=== PATIENT | male | born 1975 | race Caucasian/White ===

== ENCOUNTER 2016-12-21 22:15 | Emergency (ER) | payer MEDICAID ==
[~2016-12-21] VITALS: Ht 177.8 cm; Wt 95.3 kg
[~2016-12-21 22:15] MED LIST: ATEN-60 PO; LORA-655; OMEP20CA5 PO; TRIA25CA PO
[2016-12-21] MEDS ORDERED: SODIUM CHLORIDE 0.9% 1,000 ML IV ONE (22:24)
[2016-12-21 22:44] LABS: Basophils # (auto) 0 uL; Basophils % (auto) 0.4 % (0.0-2.0); Eosinophils # (auto) 0 uL; Eosinophils % (auto) 0.2 % (0.0-7.0); Hematocrit 39.6 % (41.0-53.0); Hemoglobin 13.7 g/dL (13.5-17.5); Lymphocytes # (auto) 0.6 uL; Lymphocytes % (auto) 13.3 % (10.0-50.0); Mean Corpuscular Hemoglobin 34.2 pg (28.0-32.0); Mean Corpuscular Hgb Conc. 34.6 g/dL (32.0-36.0); Mean Corpuscular Volume 98.9 fL (80.0-100.0); Mean Platelet Volume 7.4 fL (7.4-10.4); Monocytes # (auto) 0.4 uL; Neutrophils # (auto) 3.7 uL; Neutrophils % (auto) 78.1 % (37.0-80.0); Platelet Count (auto) 117 10^3/uL (140-450); Red Cell Distribution Width 16.9 % (11.6-16.0); White Blood Cell 4.7 10^3/uL (4.4-10.8)
[2016-12-21 23:05] LABS: Albumin 3.2 g/dL (3.4-5.0); BUN/Creatinine Ratio 7.3; Calcium 7.4 mg/dL (8.5-10.1); Magnesium 1.7 mg/dL (1.6-2.6)
[2016-12-21 23:10] LABS: Bilirubin, Total 1.8 mg/dL (0.2-1.0); Total Protein 7.7 g/dL (6.4-8.2)
[2016-12-21 23:12] LABS: INR 1.17 (0.9-1.15)
[2016-12-21 23:14] VITALS: BP 156/103
[2016-12-21 23:18] LABS: Potassium 2.7 mmol/L (3.5-5.1)
[2016-12-21] MEDS ORDERED: LORazepam 2MG/ML-1ML VIAL ONE (23:28)
[2016-12-21] MEDS ORDERED: POTASSIUM CHL 20 Meq TABLET PO ONE (23:30)
[2016-12-21] MEDS ORDERED: LORazepam 2MG/ML-1ML VIAL IV ONE (23:45)
[2016-12-22] MEDS ORDERED: LORazepam 2MG/ML-1ML VIAL IV ONE
[2016-12-22 00:05] LABS: Urine Bilirubin Negative (Negative); Urine Color Yellow (Yellow); Urine Glucose Normal (Normal); Urine Hyaline Cast FEW /lpf (0 - 2); Urine Ketone Negative (Negative); Urine Nitrite Negative (Negative); Urine RBC 1 /hpf (0 - 3); Urine pH 6.5 (5.0-8.0)
[2016-12-22 00:07] LABS: Urine Blood 1+ /uL (Negative)
== END 2016-12-22 01:04 | disposition home or self-care (01) ==
LOC: EDBD 22:15 → ER 22:19
DX: F10.239 Alcohol dependence with withdrawal, unspecified (principal); F41.9 Anxiety disorder, unspecified; F32.9 Major depressive disorder, single episode, unspecified; I10 Essential (primary) hypertension; K76.9 Liver disease, unspecified; E07.89 Other specified disorders of thyroid; F12.10 Cannabis abuse, uncomplicated; F15.10 Other stimulant abuse, uncomplicated; Z59.0 Homelessness
CPT/HCPCS: 36415; 70450; 80053; 81001; 83735; 84484; 85025; 85610; 85730; 94761; 96361; 96374; 96376; 99285; G0434; J2060

== ENCOUNTER 2017-04-23 10:24 | Inpatient (IN) | payer MEDICAID ==
[~2017-04-23] VITALS: Ht 177.8 cm; Wt 96.3 kg
[~2017-04-23 10:24] MED LIST changes: +FOLI1TAB6 PO; -OMEP20CA5 PO; +OMEP20CA74 PO; +THIA100T5 PO
[2017-04-23] MEDS ORDERED: LORazepam 2MG/ML-1ML VIAL IV ONE (11:00)
[2017-04-23] MEDS ORDERED: ONDANSETRON HCL 4 MG/2 ML VIAL IV ONE (11:00)
[2017-04-23] MEDS ORDERED: SODIUM CHLORIDE 0.9% 1,000 ML IV ONE (11:00)
[2017-04-23] MEDS ORDERED: PANTOPRAZOLE SODIUM 40 MG/10 ML VIAL IV ONE (11:00)
[2017-04-23] MEDS ORDERED: MORPHINE SULFATE 4 MG/ML SYRG IV ONE (11:00)
[2017-04-23 11:05] LABS: Urine RBC None Seen /hpf (0 - 3)
[2017-04-23 11:12] LABS: CONDITION Y; DEFINITIVE SEE PRINTOUT; Hematocrit 37.3 % (41.0-53.0); Hemoglobin 12.8 g/dL (13.5-17.5); Mean Corpuscular Hemoglobin 35.3 pg (28.0-32.0); Mean Corpuscular Hgb Conc. 34.3 g/dL (32.0-36.0); Mean Corpuscular Volume 102.8 fL (80.0-100.0); Mean Platelet Volume 8.2 fL (7.4-10.4); Platelet Count (auto) 221 10^3/uL (140-450); Red Cell Distribution Width 17.5 % (11.6-16.0); White Blood Cell 5.8 10^3/uL (4.4-10.8)
[2017-04-23 11:18] LABS: Urine Bilirubin Negative (Negative); Urine Blood Negative /uL (Negative); Urine Color Yellow (Yellow); Urine Glucose Normal (Normal); Urine Ketone Negative (Negative); Urine Nitrite Negative (Negative); Urine Urobilinogen Normal (Negative); Urine pH 5.5 (5.0-8.0)
[2017-04-23 11:21] LABS: Metamyelocytes % 0; Myelocytes % 0; Promyelocytes % 0; Reactive Lymphocytes 0
[2017-04-23 11:34] LABS: Albumin 2.8 g/dL (3.4-5.0); BUN/Creatinine Ratio 7.5; Bilirubin, Total 1.2 mg/dL (0.2-1.0); Magnesium 1.9 mg/dL (1.6-2.6); Potassium 3.7 mmol/L (3.5-5.1); Total Protein 7.5 g/dL (6.4-8.2)
[2017-04-23] MEDS: THIAMINE INJ 100 MG, MULTIPLE VITAMIN 10 ML, FOLIC ACID 1 MG, MAGNESIUM SULF SDV 50% 8 ... IV SCH ×5 (11:50)
[2017-04-23] MEDS ORDERED: LACTULOSE 20Gm/30ML SOLN PO ONE (12:15)
[2017-04-23 12:16] LABS: Macrocytosis Slight; Platelet Estimate Adequate
[2017-04-23] MEDS ORDERED: PROMETHAZINE HCL 25 MG/ML 1ML IV PRN (12:45)
[2017-04-23] MEDS ORDERED: TEMAZEPAM 15 MG CAP PO PRN (12:45)
[2017-04-23] MEDS ORDERED: THIAMINE HCL 100 MG/ML 2ML VIAL IV ONE (12:45)
[2017-04-23] MEDS ORDERED: ATENOLOL 25 MG TAB PO ONE (13:15)
[2017-04-23] MEDS: FAMOTIDINE (10MG/ML) 2ML VL IV SCH ×2 (13:41→21:48)
[2017-04-23] MEDS: chlordiazePOXIDE HCL 25 MG CAP PO SCH ×2 (13:42→18:15)
[2017-04-23] MEDS ORDERED: NITROGLYCERIN 0.4 MG SL TAB SL PRN (14:00)
[2017-04-23] MEDS ORDERED: MORPHINE SULFATE 4 MG/ML SYRG IV PRN (14:00)
[2017-04-23] MEDS: cefTRIAXone 1GM/50ML D5W 50 ML IV SCH (14:45)
[2017-04-23] MEDS: SODIUM CHLORIDE 0.9% 1,000 ML IV SCH ×2 (15:13→19:40)
[2017-04-23] MEDS: metroNIDAZOLE 500MG/100ML 100 ML IV SCH ×2 (15:20→21:48)
[2017-04-23] MEDS: MORPHINE SULFATE 4 MG/ML SYRG IV PRN ×2 (19:02→23:02)
[2017-04-23 20:33] VITALS: BP 127/76
[2017-04-23] MEDS: LORazepam 2MG/ML-1ML VIAL IV PRN ×2 (21:00→23:57)
[2017-04-23 22:00] VITALS: BP 127/76
[2017-04-24] MEDS: SODIUM CHLORIDE 0.9% 1,000 ML IV SCH ×4 (01:22→21:59)
[2017-04-24] MEDS: LORazepam 2MG/ML-1ML VIAL IV PRN ×5 (02:18→22:23)
[2017-04-24] MEDS: MORPHINE SULFATE 4 MG/ML SYRG IV PRN ×5 (03:45→23:51)
[2017-04-24 05:00] VITALS: BP 117/75
[2017-04-24] MEDS: chlordiazePOXIDE HCL 25 MG CAP PO SCH ×4 (06:27→18:18)
[2017-04-24] MEDS: metroNIDAZOLE 500MG/100ML 100 ML IV SCH ×3 (06:27→23:51)
[2017-04-24 09:00] VITALS: BP 91/51
[2017-04-24] MEDS: FOLIC ACID 1 MG TAB PO SCH (10:00)
[2017-04-24] MEDS: ATENOLOL 25 MG TAB PO SCH (10:00)
[2017-04-24] MEDS ORDERED: THIAMINE HCL 100 MG/ML 2ML VIAL IV SCH (10:00)
[2017-04-24] MEDS: cefTRIAXone 1GM/50ML D5W 50 ML IV SCH (10:50)
[2017-04-24] MEDS: FAMOTIDINE (10MG/ML) 2ML VL IV SCH ×2 (10:50→20:54)
[2017-04-24] MEDS ORDERED: SODIUM CHLORIDE 0.9% 1,000 ML IV ONE (11:00)
[2017-04-24 13:00] VITALS: BP 105/58
[2017-04-24] MEDS: THIAMINE INJ 100 MG, MULTIPLE VITAMIN 10 ML, FOLIC ACID 1 MG, MAGNESIUM SULF SDV 50% 8 ... IV SCH ×5 (14:34)
[2017-04-24 17:00] VITALS: BP 121/80
[2017-04-24 21:45] VITALS: BP 125/80
[2017-04-25] MEDS: LORazepam 2MG/ML-1ML VIAL IV PRN ×3 (01:05→08:28)
[2017-04-25] MEDS: chlordiazePOXIDE HCL 25 MG CAP PO SCH ×3 (01:07→12:00)
[2017-04-25] MEDS: SODIUM CHLORIDE 0.9% 1,000 ML IV SCH (04:39)
[2017-04-25 05:10] VITALS: BP 119/80
[2017-04-25] MEDS: metroNIDAZOLE 500MG/100ML 100 ML IV SCH (05:11)
[2017-04-25] MEDS: MORPHINE SULFATE 4 MG/ML SYRG IV PRN (05:43)
[2017-04-25 09:55] VITALS: BP 116/68
[2017-04-25] MEDS: ATENOLOL 25 MG TAB PO SCH (10:00)
[2017-04-25 10:29] LABS: Basophils # (auto) 0 uL; Basophils % (auto) 0.6 % (0.0-2.0); CONDITION Y; DEFINITIVE SEE PRINTOUT; Eosinophils # (auto) 0.1 uL; Eosinophils % (auto) 1.8 % (0.0-7.0); Hematocrit 32.9 % (41.0-53.0); Hemoglobin 11.2 g/dL (13.5-17.5); Lymphocytes # (auto) 1.5 uL; Lymphocytes % (auto) 35.9 % (10.0-50.0); Mean Corpuscular Hemoglobin 35.2 pg (28.0-32.0); Mean Corpuscular Volume 103.7 fL (80.0-100.0); Mean Platelet Volume 8.1 fL (7.4-10.4); Monocytes # (auto) 0.5 uL; Monocytes % (auto) 11.4 % (0.0-12.0); Neutrophils # (auto) 2.1 uL; Neutrophils % (auto) 50.3 % (37.0-80.0); Platelet Count (auto) 234 10^3/uL (140-450); White Blood Cell 4.2 10^3/uL (4.4-10.8)
[2017-04-25 10:42] LABS: BUN/Creatinine Ratio 5.8; Calcium 7.9 mg/dL (8.5-10.1); Potassium 3.5 mmol/L (3.5-5.1)
[2017-04-25] MEDS: cefTRIAXone 1GM/50ML D5W 50 ML IV SCH (10:59)
[2017-04-25] MEDS: FAMOTIDINE (10MG/ML) 2ML VL IV SCH (10:59)
[2017-04-25] MEDS: FOLIC ACID 1 MG TAB PO SCH (10:59)
[2017-04-25] MEDS: THIAMINE INJ 100 MG, MULTIPLE VITAMIN 10 ML, FOLIC ACID 1 MG, MAGNESIUM SULF SDV 50% 8 ... IV SCH ×5 (12:00)
== END 2017-04-25 14:11 | disposition left against medical advice (07) | DRG 282 ==
LOC: EDBD 10:24 → ER 10:31 → TELE 10:32 → TELE-WESTW 20:33
PROVIDERS: ADMIT Internal Medicine; ATTEND Internal Medicine
DX: K85.90 Acute pancreatitis without necrosis or infection, unspecified (principal); K74.60 Unspecified cirrhosis of liver; I15.9 Secondary hypertension, unspecified; I10 Essential (primary) hypertension; K76.0 Fatty (change of) liver, not elsewhere classified; N20.0 Calculus of kidney; K70.9 Alcoholic liver disease, unspecified; F32.9 Major depressive disorder, single episode, unspecified; K86.1 Other chronic pancreatitis; E86.0 Dehydration; F10.229 Alcohol dependence with intoxication, unspecified; K80.20 Calculus of gallbladder without cholecystitis without obstruction; F41.9 Anxiety disorder, unspecified; Z59.0 Homelessness; Z82.49 Family history of ischemic heart disease and other diseases of the circulatory system; Z82.3 Family history of stroke; Z83.3 Family history of diabetes mellitus; Z83.49 Family history of other endocrine, nutritional and metabolic diseases; Z87.11 Personal history of peptic ulcer disease
CPT/HCPCS: 36415; 74176; 80048; 80053; 80307; 80320; 81001; 82140; 82150; 83605; 83690; 83735; 85007; 85025; 85027; 87081; 93005; 96361; 96374; 96375; 99291; C9113; J0696; J2405; J3490

== ENCOUNTER 2017-05-04 16:31 | Emergency (ER) | payer MEDICAID ==
[~2017-05-04] VITALS: Ht 177.8 cm; Wt 83.9 kg
[~2017-05-04 16:31] MED LIST changes: -TRIA25CA PO
[2017-05-04 17:37] LABS: Basophils # (auto) 0 uL; Basophils % (auto) 0.4 % (0.0-2.0); CONDITION Y; DEFINITIVE SEE PRINTOUT; Eosinophils # (auto) 0.1 uL; Eosinophils % (auto) 1.1 % (0.0-7.0); Hematocrit 35.2 % (41.0-53.0); Hemoglobin 11.8 g/dL (13.5-17.5); Lymphocytes # (auto) 2.1 uL; Lymphocytes % (auto) 37.2 % (10.0-50.0); Mean Corpuscular Hemoglobin 34.9 pg (28.0-32.0); Mean Corpuscular Hgb Conc. 33.7 g/dL (32.0-36.0); Mean Corpuscular Volume 103.6 fL (80.0-100.0); Mean Platelet Volume 7.8 fL (7.4-10.4); Monocytes # (auto) 0.4 uL; Monocytes % (auto) 7.2 % (0.0-12.0); Neutrophils % (auto) 54.1 % (37.0-80.0); Platelet Count (auto) 271 10^3/uL (140-450); Red Cell Distribution Width 17.5 % (11.6-16.0); White Blood Cell 5.6 10^3/uL (4.4-10.8)
[2017-05-04 18:02] LABS: Platelet Estimate Adequate
[2017-05-04 18:03] LABS: Macrocytosis Slight
[2017-05-04 18:23] LABS: Albumin 2.7 g/dL (3.4-5.0); BUN/Creatinine Ratio 5.7; Bilirubin, Total 0.5 mg/dL (0.2-1.0); Calcium 7.6 mg/dL (8.5-10.1); Magnesium 1.8 mg/dL (1.6-2.6); Total Protein 7.6 g/dL (6.4-8.2)
[2017-05-04] MEDS ORDERED: SODIUM CHLORIDE 0.9% 1,000 ML IV ONE (18:30)
[2017-05-04] MEDS ORDERED: LORazepam 2MG/ML-1ML VIAL IV ONE ×3 (18:30→22:45)
[2017-05-04] MEDS ORDERED: chlordiazePOXIDE HCL 5 MG CAP PO ONE (18:30)
[2017-05-04] MEDS ORDERED: HYDROmorphone HCL 2 MG/ML VL IV ONE (20:15)
[2017-05-04] MEDS ORDERED: POTASSIUM CHL 20 Meq TABLET PO ONE (21:30)
[2017-05-04] MEDS ORDERED: THIAMINE INJ 100 MG, MULTIPLE VITAMIN 10 ML, FOLIC ACID 1 MG, MAGNESIUM SULF SDV 50% 8 ... IV SCH ×5 (22:00)
[2017-05-05] VITALS: BP 109/69
[2017-05-05] MEDS ORDERED: LORazepam 0.5 MG TAB PO ONE (02:00)
== END 2017-05-05 02:44 | disposition home or self-care (01) ==
LOC: ER 16:31 → EDBD 16:31 → ER 05-05 02:44
DX: G92 Toxic encephalopathy (principal); F10.129 Alcohol abuse with intoxication, unspecified; Y90.8 Blood alcohol level of 240 mg/100 ml or more; F41.9 Anxiety disorder, unspecified; F32.9 Major depressive disorder, single episode, unspecified; Z59.0 Homelessness; F12.10 Cannabis abuse, uncomplicated; F15.10 Other stimulant abuse, uncomplicated; K21.9 Gastro-esophageal reflux disease without esophagitis; I10 Essential (primary) hypertension; Z87.11 Personal history of peptic ulcer disease
CPT/HCPCS: 36415; 80053; 80320; 83735; 85025; 96361; 96365; 96375; 96376; 99285; J1170; J2060; J3411; J3475; J7030

== ENCOUNTER 2017-05-21 00:04 | Emergency (ER) | payer MEDICAID ==
[~2017-05-21] VITALS: Ht 177.8 cm; Wt 99.8 kg
[2017-05-21 07:42] VITALS: BP 134/88
[2017-05-21] MEDS ORDERED: HYDROcodone-ACET 5/325MG TAB PO ONE (07:45)
[2017-05-21] MEDS ORDERED: cefTRIAXone W LIDOCAINE 1 GM IM IM ONE (07:45)
[2017-05-21] MEDS ORDERED: chlordiazePOXIDE HCL 5 MG CAP PO ONE (07:45)
== END 2017-05-21 09:25 | disposition home or self-care (01) ==
LOC: EDBD 00:04 → ER 00:10
DX: L02.413 Cutaneous abscess of right upper limb (principal); K74.60 Unspecified cirrhosis of liver; I10 Essential (primary) hypertension; F12.10 Cannabis abuse, uncomplicated; K21.9 Gastro-esophageal reflux disease without esophagitis; E07.9 Disorder of thyroid, unspecified; F17.210 Nicotine dependence, cigarettes, uncomplicated; Z59.0 Homelessness
CPT/HCPCS: 96372; 99283; J0696

== ENCOUNTER 2017-07-22 09:41 | Emergency (ER) | payer SELFPAY ==
[~2017-07-22] VITALS: Ht 177.8 cm; Wt 81.6 kg
[2017-07-22] MEDS ORDERED: MVI in SODIUM CHLORIDE 0.9% 1,010 ML IV ONE (09:58)
[2017-07-22] MEDS ORDERED: SODIUM CHLORIDE 0.9% 1,000 ML IVB ONE (09:58)
[2017-07-22] MEDS ORDERED: LORazepam 2MG/ML-1ML VIAL IV ONE ×2 (10:00→13:15)
[2017-07-22] MEDS ORDERED: THIAMINE HCL 100 MG/ML 2ML VIAL IV ONE (10:00)
[2017-07-22 10:57] LABS: Basophils # (auto) 0 uL; Eosinophils # (auto) 0 uL; Lymphocytes # (auto) 0.7 uL; Monocytes # (auto) 0.4 uL; White Blood Cell 4.5 10^3/uL (4.4-10.8)
[2017-07-22 11:01] LABS: Hematocrit 40.4 % (41.0-53.0); Lymphocytes % (auto) 15.6 % (10.0-50.0); Mean Corpuscular Hemoglobin 34.6 pg (28.0-32.0); Mean Corpuscular Hgb Conc. 34.5 g/dL (32.0-36.0); Mean Corpuscular Volume 100.2 fL (80.0-100.0); Mean Platelet Volume 8.3 fL (6.9-10.8); Monocytes % (auto) 9.6 % (0.0-12.0); Neutrophils # (auto) 3.4 uL; Neutrophils % (auto) 73.8 % (37.0-80.0); Nucleated Red Blood Cells % 0.2 %; Platelet Count (auto) 66 10^3/uL (140-450); Red Cell Distribution Width 17.1 % (11.8-14.3)
[2017-07-22 11:37] LABS: Albumin 3.6 g/dL (3.4-5.0); Bilirubin, Total 1.9 mg/dL (0.2-1.0); Calcium 7.5 mg/dL (8.5-10.1); Total Protein 8.9 g/dL (6.4-8.2)
[2017-07-22 11:39] LABS: Macrocytosis Slight; Platelet Estimate Decreased
[2017-07-22 11:45] LABS: Potassium 2.6 mmol/L (3.5-5.1)
[2017-07-22] MEDS: MAGNESIUM SULFATE 1GM/100ML 100 ML IV SCH ×2 (11:51→13:08)
[2017-07-22 12:04] VITALS: BP 136/77
[2017-07-22] MEDS ORDERED: POTASSIUM CHL 20 Meq TABLET PO ONE (12:15)
[2017-07-22] MEDS ORDERED: POTASSIUM CHL 20MEQ/100ML 100 ML IV ONE (12:15)
== END 2017-07-22 16:41 | disposition home or self-care (01) ==
LOC: EDBD 09:41 → ER 09:41
DX: F10.239 Alcohol dependence with withdrawal, unspecified (principal); E87.6 Hypokalemia; K21.9 Gastro-esophageal reflux disease without esophagitis; I10 Essential (primary) hypertension; E07.89 Other specified disorders of thyroid; F17.210 Nicotine dependence, cigarettes, uncomplicated; F12.10 Cannabis abuse, uncomplicated; K85.90 Acute pancreatitis without necrosis or infection, unspecified
CPT/HCPCS: 36415; 80053; 80320; 85025; 94761; 96361; 96365; 96366; 96367; 96375; 96376; 99285; J2060; J3411; J3475; J3480; J7030

== ENCOUNTER 2017-09-30 23:26 | Emergency (ER) | payer MEDICAID ==
[~2017-09-30] VITALS: Ht 180.3 cm; Wt 93.0 kg
[2017-10-01] MEDS ORDERED: SODIUM CHLORIDE 0.9% 1,000 ML IV ONE ×2 (07:19→10:00)
[2017-10-01] MEDS ORDERED: THIAMINE HCL 100 MG/ML 2ML VIAL IV ONE (07:30)
[2017-10-01 08:17] LABS: Mean Corpuscular Volume 101.9 fL (80.0-100.0)
[2017-10-01 08:19] LABS: Hematocrit 37.5 % (41.0-53.0); Hemoglobin 12.9 g/dL (13.5-17.5); Mean Corpuscular Hemoglobin 34.9 pg (28.0-32.0); Mean Corpuscular Hgb Conc. 34.3 g/dL (32.0-36.0); Mean Platelet Volume 7.6 fL (6.9-10.8); Platelet Count (auto) 65 10^3/uL (140-450); White Blood Cell 2.8 10^3/uL (4.4-10.8)
[2017-10-01 08:26] LABS: Metamyelocytes % 0; Myelocytes % 0; Promyelocytes % 0; Reactive Lymphocytes 0
[2017-10-01 08:35] LABS: BUN/Creatinine Ratio 9.6; Potassium 3.2 mmol/L (3.5-5.1)
[2017-10-01 08:37] LABS: Acetaminophen < 2.0 ug/mL (10-30); Bilirubin, Total 0.7 mg/dL (0.2-1.0); Macrocytosis Slight; Platelet Estimate Decreased; Salicylate < 1.7 mg/dL (2.8-20.0); Total Protein 7.8 g/dL (6.4-8.2)
[2017-10-01 09:18] LABS: Urine Bilirubin Negative (Negative); Urine Blood Negative /uL (Negative); Urine Color Yellow (Yellow); Urine Glucose Normal (Normal); Urine Ketone Negative (Negative); Urine Mucus FEW (None Seen); Urine Nitrite Negative (Negative); Urine RBC <1 /hpf (0 - 3); Urine Squamous Epithelial Cell FEW /hpf (<5); Urine Urobilinogen Normal (Negative); Urine pH 6.5 (5.0-8.0)
[2017-10-01] MEDS ORDERED: ONDANSETRON HCL 4 MG/2 ML VIAL ONE (10:42)
[2017-10-01] MEDS ORDERED: ONDANSETRON HCL 4 MG/2 ML VIAL IV ONE (11:00)
[2017-10-01] MEDS ORDERED: chlordiazePOXIDE HCL 25 MG CAP PO ONE (11:15)
[2017-10-01 14:23] VITALS: BP 120/66
== END 2017-10-01 16:15 | disposition home or self-care (01) ==
LOC: EDBD 23:26 → ER 23:26
DX: F10.129 Alcohol abuse with intoxication, unspecified (principal); F32.9 Major depressive disorder, single episode, unspecified; F41.9 Anxiety disorder, unspecified; I12.9 Hypertensive chronic kidney disease with stage 1 through stage 4 chronic kidney disease, or unspecified chronic kidney disease; N18.9 Chronic kidney disease, unspecified; K21.9 Gastro-esophageal reflux disease without esophagitis; K74.60 Unspecified cirrhosis of liver; F17.210 Nicotine dependence, cigarettes, uncomplicated; Z59.0 Homelessness
CPT/HCPCS: 36415; 80053; 80307; 80320; 80329; 81001; 85007; 85027; 94761; 96361; 96374; 96375; 99285; J2405; J3411

== ENCOUNTER 2017-10-26 06:26 | Emergency (ER) | payer MEDICAID ==
[~2017-10-26] VITALS: Ht 180.3 cm; Wt 95.3 kg
[2017-10-26] MEDS ORDERED: THIAMINE HCL 100 MG/ML 2ML VIAL IV ONE (07:00)
[2017-10-26 07:59] LABS: Basophils # (auto) 0 uL; Eosinophils # (auto) 0 uL; Hemoglobin 13.8 g/dL (13.5-17.5); Lymphocytes # (auto) 1.1 uL; Mean Corpuscular Hemoglobin 33.6 pg (28.0-32.0); Monocytes # (auto) 0.3 uL; Neutrophils # (auto) 1.9 uL; White Blood Cell 3.3 10^3/uL (4.4-10.8)
[2017-10-26 08:01] LABS: Hematocrit 40.9 % (41.0-53.0); Mean Corpuscular Hgb Conc. 33.8 g/dL (32.0-36.0); Mean Corpuscular Volume 99.4 fL (80.0-100.0); Monocytes % (auto) 9.6 % (0.0-12.0); Neutrophils % (auto) 57.4 % (37.0-80.0); Nucleated Red Blood Cells % 0.2 %; Red Blood Cells 4.12 10^6/uL (4.5-5.90); Red Cell Distribution Width 14.2 % (11.8-14.3)
[2017-10-26 08:09] LABS: Platelet Count (auto) 53 10^3/uL (140-450)
[2017-10-26 08:12] LABS: INR 1.11 (0.9-1.15); Partial Thromboplastin Time 26.3 sec (22.64-33.71); Prothrombin Time 12.1 sec (9.37-12.3)
[2017-10-26] MEDS ORDERED: LORazepam 2MG/ML-1ML VIAL ONE (08:14)
[2017-10-26 08:24] LABS: Albumin 4.1 g/dL (3.4-5.0); BUN/Creatinine Ratio 10.4; Calcium 8.7 mg/dL (8.5-10.1); Magnesium 1.4 mg/dL (1.6-2.6)
[2017-10-26 08:28] LABS: Bilirubin, Total 1.1 mg/dL (0.2-1.0); Total Protein 9.4 g/dL (6.4-8.2)
[2017-10-26] MEDS ORDERED: LORazepam 2MG/ML-1ML VIAL IV ONE ×2 (08:30)
[2017-10-26] MEDS ORDERED: SODIUM CHLORIDE 0.9% 1,000 ML IV ONE ×2 (08:45)
[2017-10-26 08:50] LABS: Potassium 2.6 mmol/L (3.5-5.1)
[2017-10-26 10:56] LABS: Urine Bacteria NONE SEEN /hpf (None Seen); Urine Blood 2+ /uL (Negative); Urine Hyaline Cast FEW /lpf (0 - 2); Urine Mucus FEW (None Seen); Urine Specific Gravity 1.018 (1.001-1.035); Urine WBC 1 /hpf (0 - 3)
[2017-10-26] MEDS ORDERED: chlordiazePOXIDE HCL 25 MG CAP ONE (11:14)
[2017-10-26] MEDS ORDERED: POTASSIUM CHL 10% (20 MEQ/15ML) 15ml ORAL SOLN PO ONE (11:15)
[2017-10-26 11:27] LABS: Amphetamine Screen, Urine POSITIVE (NEGATIVE); Barbiturate Scree,Urine NEGATIVE (NEGATIVE); Benzodiazephine Screen, Urine POSITIVE (NEGATIVE)
[2017-10-26 11:28] LABS: Cannabinoid Screen, Urine NEGATIVE (NEGATIVE); Cocaine Screen, Urine NEGATIVE (NEGATIVE); Opiate Scree,Urine NEGATIVE (NEGATIVE); Phencyclidine Screen, Urine NEGATIVE (NEGATIVE)
[2017-10-26] MEDS ORDERED: chlordiazePOXIDE HCL 25 MG CAP PO ONE ×2 (11:30→17:30)
[2017-10-26] MEDS ORDERED: IBUPROFEN 800 MG TAB PO ONE (17:30)
[2017-10-26 18:01] VITALS: BP 138/75
== END 2017-10-26 17:58 | disposition home or self-care (01) ==
LOC: EDBD 06:26 → ER 06:33
DX: F10.239 Alcohol dependence with withdrawal, unspecified (principal); K21.9 Gastro-esophageal reflux disease without esophagitis; F15.10 Other stimulant abuse, uncomplicated; E87.6 Hypokalemia; I12.9 Hypertensive chronic kidney disease with stage 1 through stage 4 chronic kidney disease, or unspecified chronic kidney disease; N18.9 Chronic kidney disease, unspecified; E07.9 Disorder of thyroid, unspecified; F17.210 Nicotine dependence, cigarettes, uncomplicated; Z59.0 Homelessness
CPT/HCPCS: 36415; 70450; 71046; 80053; 80307; 80320; 81001; 82140; 82150; 83690; 83735; 83880; 84484; 85025; 85610; 85730; 93005; 96361; 96374; 96375; 99285; J2060; J3411; 96376

== ENCOUNTER 2017-12-27 00:01 | Inpatient (IN) | payer MEDICAID ==
[~2017-12-27] VITALS: Ht 182.9 cm; Wt 78.3 kg
[2017-12-27] MEDS ORDERED: ONDANSETRON HCL 4 MG/2 ML VIAL IV ONE (01:15)
[2017-12-27] MEDS ORDERED: LORazepam 2MG/ML-1ML VIAL IV ONE ×3 (01:15→15:00)
[2017-12-27 01:23] LABS: Basophils # (auto) 0 uL; Eosinophils # (auto) 0 uL; Hemoglobin 13.5 g/dL (13.5-17.5); Lymphocytes # (auto) 0.4 uL; Mean Corpuscular Hgb Conc. 34.4 g/dL (32.0-36.0); Monocytes # (auto) 0.4 uL; Neutrophils # (auto) 3.3 uL; White Blood Cell 4.1 10^3/uL (4.4-10.8)
[2017-12-27 01:25] LABS: Basophils % (auto) 0.4 % (0.0-2.0); Eosinophils % (auto) 0.1 % (0.0-7.0); Hematocrit 39.2 % (41.0-53.0); Lymphocytes % (auto) 8.9 % (10.0-50.0); Mean Corpuscular Hemoglobin 34.4 pg (28.0-32.0); Monocytes % (auto) 10.4 % (0.0-12.0); Neutrophils % (auto) 80.2 % (37.0-80.0); Nucleated Red Blood Cells % 0.1 %; Red Blood Cells 3.92 10^6/uL (4.5-5.90); Red Cell Distribution Width 15.5 % (11.8-14.3)
[2017-12-27 01:38] LABS: Alanine Aminotransferase 83 U/L (16-61); Albumin 3.9 g/dL (3.4-5.0); Anion Gap 11 (5-15); Aspartate Aminotransferase 146 U/L (15-37); BUN/Creatinine Ratio 18.8; Blood Alcohol < 3.0 mg/dL (0-5); Blood Urea Nitrogen 15 mg/dL (7-18); Calcium 8.6 mg/dL (8.5-10.1); Carbon Dioxide 29 mmol/L (21-32); Chloride 91 mmol/L (98-107); GFR African American 138 mL/min; GFR Non-African American 114 mL/min; Glucose 141 mg/dL (74-106); Magnesium 1.8 mg/dL (1.6-2.6); Sodium 131 mmol/L (136-145)
[2017-12-27 01:43] LABS: Alkaline Phosphatase 70 U/L (45-117); Bilirubin, Total 2.8 mg/dL (0.2-1.0); Total Protein 9.2 g/dL (6.4-8.2)
[2017-12-27 01:56] LABS: Platelet Count (auto) 36 10^3/uL (140-450)
[2017-12-27] MEDS ORDERED: SODIUM CHLORIDE 0.9% 2,000 ML IV ONE (02:45)
[2017-12-27] MEDS ORDERED: THIAMINE HCL 100 MG TAB ONE (02:49)
[2017-12-27] MEDS ORDERED: MVI in SODIUM CHLORIDE 0.9% 1,010 ML ONE (02:50)
[2017-12-27] MEDS ORDERED: HYDROcodone-ACET 5/325MG TAB PO PRN (04:45)
[2017-12-27] MEDS ORDERED: chlordiazePOXIDE HCL 25 MG CAP PO PRN (04:45)
[2017-12-27] MEDS ORDERED: SODIUM CHLORIDE 0.9% 500 ML IV ONE (04:45)
[2017-12-27] MEDS ORDERED: TEMAZEPAM 15 MG CAP PO PRN (04:45)
[2017-12-27] MEDS: SODIUM CHLORIDE 0.9% 1,000 ML IV SCH ×2 (04:45→15:54)
[2017-12-27] MEDS ORDERED: MORPHINE SULFATE 4 MG/ML SYR/VIAL IV PRN (04:45)
[2017-12-27] MEDS ORDERED: ACETAMINOPHEN 325 MG TAB PO PRN (04:45)
[2017-12-27] MEDS ORDERED: POTASSIUM CHL 20 Meq TABLET PO ONE (04:45)
[2017-12-27] MEDS ORDERED: NITROGLYCERIN 0.4 MG SL TAB SL PRN (04:45)
[2017-12-27] MEDS ORDERED: ONDANSETRON HCL 4 MG/2 ML VIAL IV PRN (04:45)
[2017-12-27 05:51] LABS: Urine Bacteria NONE SEEN /hpf (None Seen); Urine Blood 2+ /uL (Negative); Urine Specific Gravity 1.004 (1.001-1.035); Urine WBC <1 /hpf (0 - 3)
[2017-12-27 06:35] LABS: Alcohol, Urine < 3.0 mg/dL (0-5); Amphetamine Screen, Urine NEGATIVE (NEGATIVE); Barbiturate Scree,Urine NEGATIVE (NEGATIVE); Benzodiazephine Screen, Urine NEGATIVE (NEGATIVE); Cannabinoid Screen, Urine NEGATIVE (NEGATIVE); Cocaine Screen, Urine NEGATIVE (NEGATIVE); Opiate Scree,Urine NEGATIVE (NEGATIVE); Phencyclidine Screen, Urine NEGATIVE (NEGATIVE)
[2017-12-27] MEDS ORDERED: ENOXAPARIN SOD 40 MG/0.4 ML SYRINGE SC SCH (10:00)
[2017-12-27] MEDS ORDERED: PANTOPRAZOLE 40 MG/10 ML VIAL IV SCH (10:00)
[2017-12-27] MEDS ORDERED: ATENOLOL 25 MG TAB PO SCH (10:00)
[2017-12-27] MEDS: THIAMINE HCL 100 MG TAB PO SCH (10:16)
[2017-12-27] MEDS: FOLIC ACID 1 MG TAB PO SCH (10:16)
[2017-12-27] MEDS: PROPRANOLOL HCL 20 MG TAB PO SCH ×3 (11:00→21:32)
[2017-12-27] MEDS ORDERED: chlordiazePOXIDE HCL 5 MG CAP PO ONE (11:30)
[2017-12-27] MEDS ORDERED: SODIUM CHLORIDE IV SCH (12:00)
[2017-12-27] MEDS ORDERED: THIAMINE IV SCH (12:00)
[2017-12-27] MEDS ORDERED: MULTIPLE VITAMIN IV SCH (12:00)
[2017-12-27] MEDS: GABAPENTIN 300 MG CAP PO SCH ×2 (14:08→21:32)
[2017-12-27 15:32] VITALS: BP 120/84
[2017-12-27] MEDS: chlordiazePOXIDE HCL 5 MG CAP PO SCH (18:00)
[2017-12-27 18:09] VITALS: BP 122/80
[2017-12-27 20:00] VITALS: BP 153/64
[2017-12-27] MEDS: ASCORBIC ACID 500 MG TAB PO SCH (21:33)
[2017-12-27] MEDS: PANTOPRAZOLE 40 MG TAB PO SCH (21:33)
[2017-12-27 23:32] VITALS: BP 153/64
[2017-12-28] VITALS (7 sets, daily range): BP systolic 118–157; BP diastolic 83–91
[2017-12-28] MEDS: SODIUM CHLORIDE 0.9% 1,000 ML IV SCH ×3 (00:45→10:23)
[2017-12-28] MEDS: chlordiazePOXIDE HCL 5 MG CAP PO SCH ×4 (00:53→18:18)
[2017-12-28] MEDS: GABAPENTIN 300 MG CAP PO SCH ×2 (05:15→14:02)
[2017-12-28] MEDS: PROPRANOLOL HCL 20 MG TAB PO SCH ×2 (05:15→14:02)
[2017-12-28 05:41] LABS: Basophils # (auto) 0 uL; Basophils % (auto) 0.6 % (0.0-2.0); Eosinophils # (auto) 0.1 uL; Lymphocytes # (auto) 1.2 uL; Mean Corpuscular Hemoglobin 34.7 pg (28.0-32.0); Monocytes # (auto) 0.3 uL; Platelet Count (auto) 33 10^3/uL (140-450)
[2017-12-28 05:43] LABS: Eosinophils % (auto) 1.6 % (0.0-7.0); Hematocrit 39.4 % (41.0-53.0); Hemoglobin 13.6 g/dL (13.5-17.5); Lymphocytes % (auto) 33.4 % (10.0-50.0); Mean Corpuscular Hgb Conc. 34.6 g/dL (32.0-36.0); Mean Corpuscular Volume 100.3 fL (80.0-100.0); Monocytes % (auto) 8.1 % (0.0-12.0); Neutrophils # (auto) 2.1 uL; Neutrophils % (auto) 56.3 % (37.0-80.0); Nucleated Red Blood Cells % 0.1 %; Red Blood Cells 3.93 10^6/uL (4.5-5.90); Red Cell Distribution Width 15.7 % (11.8-14.3); White Blood Cell 3.7 10^3/uL (4.4-10.8)
[2017-12-28 05:58] LABS: Albumin 3.5 g/dL (3.4-5.0); BUN/Creatinine Ratio 16.3; Calcium 9.7 mg/dL (8.5-10.1); Potassium 3.4 mmol/L (3.5-5.1)
[2017-12-28 06:01] LABS: Bilirubin, Total 1.8 mg/dL (0.2-1.0); Total Protein 8.5 g/dL (6.4-8.2)
[2017-12-28] MEDS: THIAMINE HCL 100 MG TAB PO SCH (10:22)
[2017-12-28] MEDS: ASCORBIC ACID 500 MG TAB PO SCH (10:22)
[2017-12-28] MEDS: PANTOPRAZOLE 40 MG TAB PO SCH (10:22)
[2017-12-28] MEDS: FOLIC ACID 1 MG TAB PO SCH (10:22)
== END 2017-12-28 18:14 | disposition home or self-care (01) | DRG 775 ==
LOC: EDBD 00:01 → ER 00:10 → TELE 00:11 → TELE-WESTW 15:01
PROVIDERS: ADMIT Nurse Practitioner; ATTEND Hospitalist
DX: F10.231 Alcohol dependence with withdrawal delirium (principal); R65.10 Systemic inflammatory response syndrome (SIRS) of non-infectious origin without acute organ dysfunction; I13.10 Hypertensive heart and chronic kidney disease without heart failure, with stage 1 through stage 4 chronic kidney disease, or unspecified chronic kidney disease; K70.30 Alcoholic cirrhosis of liver without ascites; E86.0 Dehydration; F15.90 Other stimulant use, unspecified, uncomplicated; F17.210 Nicotine dependence, cigarettes, uncomplicated; F41.9 Anxiety disorder, unspecified; F32.9 Major depressive disorder, single episode, unspecified; N18.9 Chronic kidney disease, unspecified; G47.00 Insomnia, unspecified; K29.20 Alcoholic gastritis without bleeding; K21.9 Gastro-esophageal reflux disease without esophagitis; Z59.0 Homelessness; Z82.3 Family history of stroke; Z82.49 Family history of ischemic heart disease and other diseases of the circulatory system; Z83.3 Family history of diabetes mellitus; Z79.899 Other long term (current) drug therapy
CPT/HCPCS: 36415; 80053; 80307; 80320; 81001; 83735; 84484; 85025; 93005; 96361; 96365; C9113; J2405

== ENCOUNTER 2018-02-28 22:03 | Inpatient (IN) | payer MEDICAID ==
[~2018-02-28] VITALS: Ht 152.4 cm; Wt 100.1 kg
[2018-02-28] MEDS ORDERED: VANCOMYCIN 1GM/250ML 250 ML IV ONE (23:45)
[2018-02-28] MEDS ORDERED: SODIUM CHLORIDE 0.9% 3,000 ML IV ONE (23:45)
[2018-02-28] MEDS ORDERED: CLINDAMYCIN 900MG IV 50 ML IV ONE (23:45)
[2018-03-01] MEDS ORDERED: IBUPROFEN 600 MG TAB PO ONE
[2018-03-01 01:07] LABS: Basophils # (auto) 0.1 uL; Basophils % (auto) 1.4 % (0.0-2.0); Eosinophils # (auto) 0.2 uL; Eosinophils % (auto) 2.4 % (0.0-7.0); Hematocrit 40.1 % (41.0-53.0); Hemoglobin 13.5 g/dL (13.5-17.5); Lymphocytes # (auto) 3.4 uL; Mean Corpuscular Hemoglobin 33.5 pg (28.0-32.0); Mean Corpuscular Hgb Conc. 33.6 g/dL (32.0-36.0); Mean Corpuscular Volume 99.5 fL (80.0-100.0); Monocytes # (auto) 0.7 uL; Monocytes % (auto) 7.9 % (0.0-12.0); Neutrophils # (auto) 4.4 uL; Neutrophils % (auto) 50.3 % (37.0-80.0); Nucleated Red Blood Cells % 0.1 %; Platelet Count (auto) 363 10^3/uL (140-450); Red Blood Cells 4.03 10^6/uL (4.5-5.90); Red Cell Distribution Width 13.9 % (11.8-14.3); White Blood Cell 8.9 10^3/uL (4.4-10.8)
[2018-03-01 01:29] LABS: Alkaline Phosphatase 73 U/L (45-117); Bilirubin, Total 0.4 mg/dL (0.2-1.0); Total Protein 9.3 g/dL (6.4-8.2)
[2018-03-01 01:31] LABS: Alanine Aminotransferase 55 U/L (16-61); Albumin 3.1 g/dL (3.4-5.0); Anion Gap 8 (5-15); Aspartate Aminotransferase 34 U/L (15-37); BUN/Creatinine Ratio 10.8; Blood Urea Nitrogen 8 mg/dL (7-18); Calcium 8.5 mg/dL (8.5-10.1); Carbon Dioxide 28 mmol/L (21-32); Chloride 107 mmol/L (98-107); GFR African American 150 mL/min; GFR Non-African American 124 mL/min; Glucose 142 mg/dL (74-106); INR 1.05 (0.9-1.15); Magnesium 1.9 mg/dL (1.6-2.6); Partial Thromboplastin Time 28.9 sec (22.64-33.71); Potassium 3.5 mmol/L (3.5-5.1); Prothrombin Time 11.5 sec (9.37-12.3); Sodium 143 mmol/L (136-145)
[2018-03-01] MEDS ORDERED: ACETAMINOPHEN 500 MG TAB PO PRN (01:45)
[2018-03-01] MEDS ORDERED: THIAMINE 100mg/ml INJ (200mg/2ml VIAL) IV ONE (01:45)
[2018-03-01] MEDS: HYDROcodone-ACET 5/325MG TAB PO PRN ×4 (03:20→19:21)
[2018-03-01] MEDS: SODIUM CHLORIDE 0.9% 1,000 ML IV SCH ×2 (03:24→21:01)
[2018-03-01 04:00] VITALS: BP 130/88
[2018-03-01] MEDS: chlordiazePOXIDE HCL 25 MG CAP PO PRN ×2 (05:00→09:00)
[2018-03-01] MEDS: CLINDAMYCIN 600MG IV 50 ML IV SCH ×3 (05:28→21:01)
[2018-03-01] MEDS: LORazepam 2MG/ML-1ML VIAL IV PRN ×3 (05:28→21:02)
[2018-03-01 06:07] LABS: Urine WBC None Seen /hpf (0 - 3)
[2018-03-01 06:17] LABS: Urine Bacteria NONE SEEN /hpf (None Seen); Urine Blood Negative /uL (Negative); Urine Mucus FEW (None Seen); Urine Specific Gravity 1.015 (1.001-1.035)
[2018-03-01 06:35] LABS: Amphetamine Screen, Urine NEGATIVE (NEGATIVE); Barbiturate Scree,Urine POSITIVE (NEGATIVE); Benzodiazephine Screen, Urine POSITIVE (NEGATIVE); Cannabinoid Screen, Urine NEGATIVE (NEGATIVE); Cocaine Screen, Urine NEGATIVE (NEGATIVE); Opiate Scree,Urine NEGATIVE (NEGATIVE); Phencyclidine Screen, Urine NEGATIVE (NEGATIVE)
[2018-03-01] MEDS ORDERED: ATEN50TA PO (07:45)
[2018-03-01] MEDS ORDERED: LORA2TAB10 PO (07:45)
[2018-03-01 08:00] VITALS: BP 126/80
[2018-03-01] MEDS ORDERED: cefTRIAXone 1GM/10ml IVPUSH 10 ML IV SCH (09:00)
[2018-03-01] MEDS: MULTIPLE VITAMIN TAB PO SCH (10:43)
[2018-03-01] MEDS: FOLIC ACID 1 MG TAB PO SCH (10:44)
[2018-03-01] MEDS: THIAMINE 100mg/ml INJ (200mg/2ml VIAL) IV SCH (10:45)
[2018-03-01] MEDS: chlordiazePOXIDE HCL 25 MG CAP PO SCH ×2 (12:15→18:19)
[2018-03-01 12:56] VITALS: BP 136/86
[2018-03-01] MEDS: ATENOLOL 50 MG TAB PO SCH (13:38)
[2018-03-01 16:45] VITALS: BP 115/74
[2018-03-01] MEDS ORDERED: ONDANSETRON HCL 4 MG/2 ML VIAL IV PRN (20:30)
[2018-03-01 22:42] VITALS: BP 148/93
[2018-03-02] MEDS: SODIUM CHLORIDE 0.9% 1,000 ML IV SCH ×2 (00:37→09:39)
[2018-03-02] MEDS: HYDROcodone-ACET 5/325MG TAB PO PRN ×3 (00:38→14:02)
[2018-03-02] MEDS: chlordiazePOXIDE HCL 25 MG CAP PO SCH ×4 (00:38→18:00)
[2018-03-02] MEDS: LORazepam 2MG/ML-1ML VIAL IV PRN ×3 (03:01→17:23)
[2018-03-02 05:52] VITALS: BP 131/82
[2018-03-02] MEDS: CLINDAMYCIN 600MG IV 50 ML IV SCH ×2 (05:56→14:02)
[2018-03-02 07:01] LABS: Basophils # (auto) 0.1 uL; Basophils % (auto) 1.1 % (0.0-2.0); Eosinophils # (auto) 0.3 uL; Eosinophils % (auto) 4.5 % (0.0-7.0); Hematocrit 36.8 % (41.0-53.0); Hemoglobin 12.6 g/dL (13.5-17.5); Lymphocytes # (auto) 2.1 uL; Lymphocytes % (auto) 31.5 % (10.0-50.0); Mean Corpuscular Hemoglobin 33.8 pg (28.0-32.0); Mean Corpuscular Hgb Conc. 34.3 g/dL (32.0-36.0); Mean Corpuscular Volume 98.5 fL (80.0-100.0); Monocytes # (auto) 0.6 uL; Monocytes % (auto) 8.8 % (0.0-12.0); Neutrophils # (auto) 3.6 uL; Neutrophils % (auto) 54.1 % (37.0-80.0); Nucleated Red Blood Cells % 0.1 %; Platelet Count (auto) 283 10^3/uL (140-450); Red Blood Cells 3.73 10^6/uL (4.5-5.90); Red Cell Distribution Width 13.6 % (11.8-14.3); White Blood Cell 6.7 10^3/uL (4.4-10.8)
[2018-03-02 07:20] LABS: BUN/Creatinine Ratio 14.9; Calcium 8.2 mg/dL (8.5-10.1)
[2018-03-02] MEDS ORDERED: PROMETHAZINE HCL 25 MG/ML 1ML IV PRN (08:15)
[2018-03-02 08:36] VITALS: BP 124/92
[2018-03-02] MEDS: THIAMINE 100mg/ml INJ (200mg/2ml VIAL) IV SCH (09:39)
[2018-03-02] MEDS: ATENOLOL 50 MG TAB PO SCH (09:40)
[2018-03-02] MEDS: MULTIPLE VITAMIN TAB PO SCH (09:40)
[2018-03-02] MEDS: FOLIC ACID 1 MG TAB PO SCH (09:40)
[2018-03-02] MEDS ORDERED: LEVOFLOXACIN 500MG 100 ML IV SCH (10:00)
[2018-03-02 13:00] VITALS: BP 116/73
[2018-03-02 17:29] VITALS: BP 128/72
== END 2018-03-02 17:55 | DRG 383 ==
LOC: EDBD 22:03 → ER 22:03 → CENTRAL 22:04 → TELE-CENTR 03-01 03:55 → CENTRAL 03-01 05:33
PROVIDERS: ADMIT Nurse Practitioner Family; ATTEND Internal Medicine
DX: L03.113 Cellulitis of right upper limb (principal); I10 Essential (primary) hypertension; L03.114 Cellulitis of left upper limb; F10.229 Alcohol dependence with intoxication, unspecified; S61.259A Open bite of unspecified finger without damage to nail, initial encounter; F17.210 Nicotine dependence, cigarettes, uncomplicated; S00.81XA Abrasion of other part of head, initial encounter; K21.9 Gastro-esophageal reflux disease without esophagitis; F41.9 Anxiety disorder, unspecified; Z59.0 Homelessness; Z79.899 Other long term (current) drug therapy; Z82.3 Family history of stroke; Z83.3 Family history of diabetes mellitus; Z82.49 Family history of ischemic heart disease and other diseases of the circulatory system; Y93.89 Activity, other specified; Y92.89 Other specified places as the place of occurrence of the external cause; Y99.8 Other external cause status; W54.0XXA Bitten by dog, initial encounter
CPT/HCPCS: 36415; 73120; 80048; 80053; 80307; 80320; 81001; 83735; 83880; 84484; 85025; 85379; 85610; 85730; 87040; 87081; 96365; 96375; J1956; J2405; J3490

== ENCOUNTER 2018-03-09 01:24 | Emergency (ER) | payer MEDICAID ==
[~2018-03-09] VITALS: Ht 180.3 cm; Wt 90.7 kg
[~2018-03-09 01:24] MED LIST changes: -ATEN-60 PO; +ATEN50TA PO; -LORA-655; +LORA2TAB10 PO
[2018-03-09] MEDS ORDERED: SODIUM CHLORIDE 0.9% 1,000 ML IV ONE (02:30)
[2018-03-09 06:31] VITALS: BP 106/60
== END 2018-03-09 06:25 | disposition home or self-care (01) ==
LOC: ER 01:24 → EDBD 01:24 → ER 06:25
DX: F10.229 Alcohol dependence with intoxication, unspecified (principal); K21.9 Gastro-esophageal reflux disease without esophagitis; I10 Essential (primary) hypertension; F32.9 Major depressive disorder, single episode, unspecified; F41.9 Anxiety disorder, unspecified; F17.210 Nicotine dependence, cigarettes, uncomplicated; F12.10 Cannabis abuse, uncomplicated; F15.10 Other stimulant abuse, uncomplicated; Z59.0 Homelessness
CPT/HCPCS: 36415; 80320; 94761

== ENCOUNTER 2018-03-10 04:45 | Emergency (ER) | payer MEDICAID ==
[~2018-03-10] VITALS: Ht 177.8 cm; Wt 117.9 kg
[2018-03-10] MEDS ORDERED: THIAMINE INJ 100 MG, MULTIPLE VITAMIN 10 ML, FOLIC ACID 1 MG, MAGNESIUM SULF SDV 50% 8 ... IV STA ×5 (05:05)
[2018-03-10] MEDS ORDERED: MVI in SODIUM CHLORIDE 0.9% 1,010 ML ONE (05:09)
[2018-03-10 05:16] LABS: Hematocrit 38.8 % (41.0-53.0); Mean Corpuscular Hemoglobin 33.2 pg (28.0-32.0); Mean Corpuscular Hgb Conc. 33.5 g/dL (32.0-36.0); Platelet Count (auto) 162 10^3/uL (140-450); Red Blood Cells 3.92 10^6/uL (4.5-5.90); Red Cell Distribution Width 14.4 % (11.8-14.3); White Blood Cell 6.4 10^3/uL (4.4-10.8)
[2018-03-10 05:26] LABS: Band Neutrophils % (manual) 0; Blast Cells 0; Eosinophils % (manual) 0 (0-7); Metamyelocytes % 0; Myelocytes % 0; Promyelocytes % 0; Reactive Lymphocytes 0
[2018-03-10 05:27] LABS: Albumin 3.2 g/dL (3.4-5.0); BUN/Creatinine Ratio 11.8; Calcium 8.1 mg/dL (8.5-10.1); Potassium 3.6 mmol/L (3.5-5.1)
[2018-03-10 05:31] LABS: Bilirubin, Total 0.2 mg/dL (0.2-1.0)
[2018-03-10 05:51] LABS: Basophils % (manual) 1 (0.0-2.0); Lymphocytes % (manual) 57 (10.0-50.0); Monocytes % (manual) 19 (0-12)
[2018-03-10 06:46] LABS: Urine Bacteria NONE SEEN /hpf (None Seen); Urine Blood Negative /uL (Negative); Urine Mucus FEW (None Seen); Urine Specific Gravity 1.021 (1.001-1.035); Urine WBC 2 /hpf (0 - 3)
[2018-03-10 07:00] LABS: Cannabinoid Screen, Urine NEGATIVE (NEGATIVE)
[2018-03-10 07:11] LABS: Amphetamine Screen, Urine NEGATIVE (NEGATIVE); Barbiturate Scree,Urine NEGATIVE (NEGATIVE); Benzodiazephine Screen, Urine POSITIVE (NEGATIVE); Cocaine Screen, Urine NEGATIVE (NEGATIVE); Opiate Scree,Urine NEGATIVE (NEGATIVE); Phencyclidine Screen, Urine NEGATIVE (NEGATIVE)
[2018-03-10] MEDS ORDERED: KETOROLAC TROMETH 30 MG/ML 1ML VIAL IV ONE (08:15)
[2018-03-10 09:53] VITALS: BP 109/57
== END 2018-03-10 10:59 | disposition home or self-care (01) ==
LOC: EDUNIT# 04:45 → EDBD 04:45 → ER 04:46
DX: F10.10 Alcohol abuse, uncomplicated (principal); I12.9 Hypertensive chronic kidney disease with stage 1 through stage 4 chronic kidney disease, or unspecified chronic kidney disease; N18.9 Chronic kidney disease, unspecified; K21.9 Gastro-esophageal reflux disease without esophagitis; E07.9 Disorder of thyroid, unspecified; F17.210 Nicotine dependence, cigarettes, uncomplicated; Z59.0 Homelessness; Z79.899 Other long term (current) drug therapy
CPT/HCPCS: 36415; 80053; 80307; 80320; 81001; 85007; 85027; 96365; 96366; 96375; 99285; J1885; J3411; J3475

== ENCOUNTER 2018-03-10 19:41 | Emergency (ER) | payer MEDICAID ==
[~2018-03-10] VITALS: Ht 177.8 cm; Wt 97.5 kg
[2018-03-10] MEDS ORDERED: SODIUM CHLORIDE 0.9% 1,000 ML IV ONE (19:50)
[2018-03-10 20:41] LABS: Hematocrit 36.4 % (41.0-53.0); Hemoglobin 12.2 g/dL (13.5-17.5); Mean Corpuscular Hemoglobin 33.3 pg (28.0-32.0); Mean Corpuscular Hgb Conc. 33.5 g/dL (32.0-36.0); Mean Corpuscular Volume 99.3 fL (80.0-100.0); Red Blood Cells 3.66 10^6/uL (4.5-5.90); Red Cell Distribution Width 14.2 % (11.8-14.3); White Blood Cell 5.6 10^3/uL (4.4-10.8)
[2018-03-10 20:52] LABS: Platelet Count (auto) 133 10^3/uL (140-450)
[2018-03-10 20:53] LABS: Band Neutrophils % (manual) 0; Basophils % (manual) 0 (0.0-2.0); Blast Cells 0; Myelocytes % 0; Promyelocytes % 0; Reactive Lymphocytes 0
[2018-03-10 21:02] LABS: Calcium 8.2 mg/dL (8.5-10.1)
[2018-03-10 21:08] LABS: Bilirubin, Total 0.3 mg/dL (0.2-1.0); Total Protein 8.6 g/dL (6.4-8.2)
[2018-03-10 21:09] LABS: Eosinophils % (manual) 6 (0-7); Lymphocytes % (manual) 62 (10.0-50.0); Metamyelocytes % 1; Monocytes % (manual) 4 (0-12)
[2018-03-10 21:46] LABS: BUN/Creatinine Ratio 12.6
[2018-03-11] MEDS ORDERED: LORazepam 2MG/ML-1ML VIAL IM ONE (01:00)
[2018-03-11] MEDS ORDERED: KETOROLAC TROMETH 30 MG/ML 1ML VIAL IV ONE ×2 (01:00→12:45)
[2018-03-11 01:58] LABS: Amphetamine Screen, Urine NEGATIVE (NEGATIVE); Barbiturate Scree,Urine NEGATIVE (NEGATIVE); Benzodiazephine Screen, Urine POSITIVE (NEGATIVE); Cannabinoid Screen, Urine NEGATIVE (NEGATIVE); Cocaine Screen, Urine NEGATIVE (NEGATIVE); Opiate Scree,Urine NEGATIVE (NEGATIVE); Phencyclidine Screen, Urine NEGATIVE (NEGATIVE)
[2018-03-11] MEDS ORDERED: LORazepam 2MG/ML-1ML VIAL IV ONE ×3 (04:45→17:30)
[2018-03-11 17:19] VITALS: BP 147/92
== END 2018-03-11 17:36 ==
LOC: EDBD 19:41 → ER 19:43
DX: S61.452A Open bite of left hand, initial encounter (principal); S61.451A Open bite of right hand, initial encounter; F10.129 Alcohol abuse with intoxication, unspecified; F41.9 Anxiety disorder, unspecified; F32.9 Major depressive disorder, single episode, unspecified; F17.210 Nicotine dependence, cigarettes, uncomplicated; I10 Essential (primary) hypertension; K21.9 Gastro-esophageal reflux disease without esophagitis; Z59.0 Homelessness; Y90.8 Blood alcohol level of 240 mg/100 ml or more; W54.0XXA Bitten by dog, initial encounter; Y93.89 Activity, other specified; Y92.89 Other specified places as the place of occurrence of the external cause; Y99.8 Other external cause status
CPT/HCPCS: 36415; 80053; 80307; 80320; 85007; 85027; 96372; 96374; 99284; J1885; J2060; J7030

== ENCOUNTER 2018-03-20 15:21 | Emergency (ER) | payer MEDICAID ==
[~2018-03-20] VITALS: Ht 175.3 cm; Wt 68.0 kg
[2018-03-20 16:03] VITALS: BP 131/79
[2018-03-20] MEDS ORDERED: SODIUM CHLORIDE 0.9% 1,000 ML IV ONE (16:04)
[2018-03-20] MEDS ORDERED: THIAMINE INJ 100 MG, MULTIPLE VITAMIN 10 ML, FOLIC ACID 1 MG, MAGNESIUM SULF SDV 50% 8 ... IV SCH ×5 (16:09)
[2018-03-20 16:45] LABS: Hematocrit 34.8 % (41.0-53.0); Hemoglobin 11.8 g/dL (13.5-17.5); Mean Corpuscular Hemoglobin 32.8 pg (28.0-32.0); Mean Corpuscular Hgb Conc. 33.9 g/dL (32.0-36.0); Mean Corpuscular Volume 96.7 fL (80.0-100.0); Red Cell Distribution Width 14.3 % (11.8-14.3); White Blood Cell 4.6 10^3/uL (4.4-10.8)
[2018-03-20] MEDS ORDERED: ALUM & MAG HYDROX-SIMETH LIQ(MAALOX) 30 ML PO ONE (16:45)
[2018-03-20] MEDS ORDERED: FAMOTIDINE 20 MG TAB PO ONE (16:45)
[2018-03-20] MEDS ORDERED: LIDOCAINE VISCOUS 2% 15ML UD PO ONE (16:45)
[2018-03-20] MEDS ORDERED: ACETAMINOPHEN 500 MG TAB PO ONE (16:45)
[2018-03-20] MEDS ORDERED: DONNATAL 5ml ORAL Elix (BELLADONNA ALK-PHENOBARB) PO ONE (16:45)
[2018-03-20 16:48] LABS: Band Neutrophils % (manual) 0; Basophils % (manual) 0 (0.0-2.0); Blast Cells 0; Metamyelocytes % 0; Myelocytes % 0; Platelet Count (auto) 136 10^3/uL (140-450); Promyelocytes % 0; Reactive Lymphocytes 0
[2018-03-20 16:50] LABS: Acetaminophen < 2.0 ug/mL (10-30); Salicylate < 1.7 mg/dL (2.8-20.0)
[2018-03-20 16:55] LABS: BUN/Creatinine Ratio 13.9; Bilirubin, Total 0.3 mg/dL (0.2-1.0); Calcium 7.4 mg/dL (8.5-10.1); Magnesium 1.7 mg/dL (1.6-2.6); Potassium 3.3 mmol/L (3.5-5.1); Total Protein 7.6 g/dL (6.4-8.2)
[2018-03-20 16:56] LABS: Eosinophils % (manual) 3 (0-7); Lymphocytes % (manual) 77 (10.0-50.0); Monocytes % (manual) 6 (0-12)
== END 2018-03-20 17:53 | disposition left against medical advice (07) ==
LOC: ER 15:21 → EDBD 15:21 → ER 17:53
DX: F10.229 Alcohol dependence with intoxication, unspecified (principal); F12.10 Cannabis abuse, uncomplicated; F15.10 Other stimulant abuse, uncomplicated; F32.9 Major depressive disorder, single episode, unspecified; F41.9 Anxiety disorder, unspecified; I10 Essential (primary) hypertension; K21.9 Gastro-esophageal reflux disease without esophagitis; F17.210 Nicotine dependence, cigarettes, uncomplicated; Z59.0 Homelessness
CPT/HCPCS: 36415; 80053; 80320; 80329; 83735; 84443; 85007; 85027; 93005